=== PATIENT | female | born 1970 | race African-American/Black ===

== ENCOUNTER 2022-05-13 22:53 | Emergency (ER) | payer MEDICAID ==
[~2022-05-13] VITALS: Ht 167.6 cm; Wt 108.8 kg
[2022-05-13] MEDS ORDERED: IBUP-2029 MT (23:43)
[2022-05-13] MEDS ORDERED: ACYC200C31 MT (23:43)
[2022-05-13] MEDS ORDERED: LIDO1ADH23 TP (23:43)
[2022-05-13] MEDS ORDERED: HYDR-4001 MT (23:43)
[2022-05-13] MEDS ORDERED: HYDROCODONE/ACETAMINOPHEN 5/325MG TABLET PO ONE (23:45)
[2022-05-13 23:51] VITALS: BP 133/76
== END 2022-05-13 23:53 | disposition home or self-care (01) ==
LOC: ER 22:53
DX: B02.9 Zoster without complications (principal); Z98.890 Other specified postprocedural states; Z91.048 Other nonmedicinal substance allergy status
CPT/HCPCS: 99283